=== PATIENT | male | born 1975 ===

== ENCOUNTER 2018-09-06 08:57 | Emergency (ER) | payer OTHER ==
[2018-09-06 09:25] VITALS: RESP 18
[2018-09-06 09:39] LABS: BASO % 0.5 % (0.0-2.0); EOS # 0.1 K/uL (0.0-0.7); EOS % 1.8 % (0.0-4.0); HEMOGLOBIN 13.8 g/dL (12.0-18.0); LYMPH # 1.7 K/uL (1.0-4.3); LYMPH % 33.7 % (20.0-40.0); MEAN CELL VOLUME 74.5 fL (80.0-94.0); MEAN CORPUSCULAR HEMOGLOBIN 23.7 pg (27.0-31.0); MEAN CORPUSCULAR HGB CONC 31.8 g/dL (33.0-37.0); MEAN PLATELET VOLUME 9.7 fL (7.2-11.7); MONO # 0.4 K/uL (0.0-0.8); MONO % 8.1 % (0.0-10.0); NEUT # 2.8 K/uL (1.8-7.0); NEUT % 55.9 % (50.0-75.0); NRBC % 0.1 % (0.0-2.0); RBC 5.82 Mil/uL (4.40-5.90); RED CELL DISTRIBUTION WIDTH 14.1 % (11.5-14.5); WHITE BLOOD COUNT 4.9 K/uL (4.8-10.8)
[2018-09-06 09:50] LABS: BLOOD UREA NITROGEN 18 mg/dL (9-20); CALCIUM 9.6 mg/dl (8.6-10.4); GFR NON-AFRICAN AMERICAN > 60
[2018-09-06] MEDS ORDERED: Iodixanol 320 MG/ML 100 ML BOTTLE IV ONE (10:00)
--- NOTE | 2018-09-06 11:09 | C.PDOC ---
History Of Present Illness 43 year old male presents to the ED for evaluation of al ump to his left neck, under the angle of the jaw noted for one month. Patient states the area has been painful over the past 3 days and presents for evaluation. Patient reports pain is 4-5/10 and sharp and stinging in nature. He denies fever, chill, drainage or history of trauma. Time Seen by Provider: 09/06/18 09:13 Chief Complaint (Nursing): ENT Problem History Per: Patient History/Exam Limitations: None Onset/Duration Of Symptoms: Days (3), Other (one month ) Current Symptoms Are (Timing): Still Present Past Medical History Reviewed: Historical Data, Nursing Documentation, Vital Signs Vital Signs: Last Vital Signs Temp 98.5 F 09/06/18 09:11 Pulse 87 09/06/18 09:11 Resp 18 09/06/18 09:11 BP 149/90 09/06/18 09:11 Pulse Ox 100 09/06/18 09:11 - Medical History PMH: No Chronic Diseases Surgical History: No Surg Hx Family History: States: Unknown Family Hx - Social History Hx Alcohol Use: No Hx Substance Use: No - Immunization History Hx Tetanus Toxoid Vaccination: No Hx Influenza Vaccination: No Hx Pneumococcal Vaccination: No Review Of Systems Constitutional: Negative for: Fever, Chills Skin: Positive for: Other (lump to left side of neck, under the angle of the jaw. no drainage ) Physical Exam - Physical Exam Appears: Non-toxic, No Acute Distress Skin: Normal Color, Warm, Dry, Other (circular, ping pong ball sized firm solid mass to left side of neck, under angle of jaw. no tenderness, erythema or induration ) Head: Atraumatic, Normacephalic Eye(s): bilateral: Normal Inspection Ear(s): Bilateral: Normal Nose: Normal, No Discharge Oral Mucosa: Moist Gingiva: Normal Appearing, No Erythema, No Swelling Throat: Normal, No Erythema, No Exudate, No Drooling, No Mass Neck: Normal ROM, Supple Extremity: Normal ROM Neurological/Psych: Oriented x3, Normal Speech, Normal Cognition ED Course And Treatment - Laboratory Results Result Diagrams: 09/06/18 09:34 09/06/18 09:34 O2 Sat by Pulse Oximetry: 100 (on RA ) Pulse Ox Interpretation: Normal Medical Decision Making Medical Decision Making: Impression: 43 year old male with circular lump to left side of neck Plan: * bloodwork * CT Neck Soft Tissue * reassess and disposition Progress: Bloodwork and CT Neck Soft tissue ordered and reviewed. Disposition Counseled Patient/Family Regarding: Studies Performed, Need For Followup - Disposition Referrals: [facility] [Outside] Disposition: HOME/ ROUTINE Disposition Time: 11:38 Condition: STABLE Additional Instructions: Siga en la clinica para determinar lo que es, danica tumor. Nesetiras boris biopsi. Forms: [employer] ([place]) - POA Present On Arrival: None - Clinical Impression Clinical Impression: Neck mass - Scribe Statement The provider has reviewed the documentation as recorded by the Scribe (Sheela Yap) Provider Attestation: All medical record entries made by the Scribe were at my direction and personally dictated by me. I have reviewed the chart and agree that the record accurately reflects my personal performance of the history, physical exam, medical decision making, and the department course for this patient. I have also personally directed, reviewed, and agree with the discharge instructions and disposition.
--- NOTE | 2018-09-06 11:20 | CT ---
Date of service: 09/06/2018 PROCEDURE: CT NECK WITH CONTRAST HISTORY: large mass to left neck at the angle of the jaw COMPARISON: None available. TECHNIQUE: CT of the neck with intravenous contrast. Coronal and sagittal reformats generated. Intravenous contrast dose: Radiation dose: Total exam DLP = 503.65 mGy-cm. This CT exam was performed using one or more of the following dose reduction techniques: Automated exposure control, adjustment of the mA and/or kV according to patient size, and/or use of iterative reconstruction technique. FINDINGS: NASOPHARYNX: Within normal limits. SUPRAHYOID NECK: There is no mass or abnormal enhancement in the oropharynx, oral cavity, parapharyngeal space and retropharyngeal space. INFRAHYOID NECK: There is no mass or abnormal enhancement in the larynx, hypopharynx, and supraglottic space. Vocal cords intact. GLANDS: Parotid and submandibular glands unremarkable. Normal size thyroid gland, without nodule. LYMPH NODES: At the site of clinically palpable lump in the left submandibular region, there is an approximately 2.7 x 2.1 x 3.5 cm multilobular heterogeneously enhancing predominantly hypodense mass inferior to the submandibular gland and anterior to the sternocleidomastoid muscle and carotid vessels. CERVICAL SPINE: No fracture or focal lesion. VASCULAR STRUCTURES: Normal intravascular enhancement. OTHER FINDINGS: None. IMPRESSION: 2.7 x 2.1 x 3.5 cm multilobular heterogeneously enhancing mass in the left submandibular region at the site of clinically palpable lump. The differential considerations include conglomerate lymph node which may be infectious, inflammatory or neoplastic in etiology. Benign and malignant soft tissue tumors cannot be entirely excluded. Clinical follow-up and histopathologic correlation is advised.
[2018-09-06 11:49] VITALS: BP 115/77; PULSE 67; TEMP 98.3; O2SAT 99
== END 2018-09-06 11:50 | disposition home or self-care (01) ==
LOC: C.ER 08:57
DX: R22.1 Localized swelling, mass and lump, neck (principal)
CPT/HCPCS: 70491; 80048; 85025; 99283; Q9967

== ENCOUNTER 2018-10-16 07:49 | Day surgery (SDC) | payer SELFPAY ==
--- NOTE | 2018-10-16 09:48 | CP.SDSHP ---
Same Day Surgery H & P - History Proposed Procedure: US guided FNA of left neck mass Pre-Op Diagnosis: neck mass - Allergies Allergies: Allergies No Known Allergies Allergy (Unverified 09/06/18 09:13) - Physical Exam Mental Status: Alert & Oriented x3 - Impression Impression: US showed complex solid left neck mass. PLan US guided FNA of left neck mass Pt. Evaluated Today:Candidate for Anesthesia & Procedure: No - Date & Time Date: 10/16/18 Time: 09:25 Short Stay Discharge - Short Stay Discharge Admitting Diagnosis/Reason for Visit: LOCALIZED SWELLING, MASS AND LUMP, HEAD Disposition: HOME/ ROUTINE
--- NOTE | 2018-10-16 09:51 | PCM.SURG1 ---
Surgeon's Initial Post Op Note - Surgeon's Notes Surgeon: Prasad Rayo MD Economic History Teacher: NONE Type of Anesthesia: Local Pre-Operative Diagnosis: neck mass Operative Findings: US showed a complex 2.5 cm left submandibular mass Post-Operative Diagnosis: neck mass Operation Performed: US guided FNA of left neck mass Specimen/Specimens Removed: 25 g FNA x 4 Estimated Blood Loss: EBL {In ML}: 1 Blood Products Given: N/A Drains Used: No Drains Post-Op Condition: Good Date of Surgery/Procedure: 10/16/18 Time of Surgery/Procedure: 09:50
--- NOTE | 2018-10-18 11:36 | US ---
PROCEDURE: Date of procedure: 10/16/2018 Procedure: Ultrasound-guided FNA of left submandibular mass Ultrasound guidance for biopsy, [id number] Medications: 3 cc 1% Lidocaine HISTORY: Complex left submandibular mass TECHNIQUE: Following informed consent and procedure time-out, limited ultrasound patient's left neck showed a large complex cyst submandibular mass measuring 3.8 centimeters. The patient's neck was prepped and draped in the usual sterile fashion. The skin was anesthetized with 1 percent lidocaine. Ultrasound-guided fine needle aspiration was then performed using a 25 gauge needle. A total of 4 passes were made into the mass under direct ultrasound guidance. FNA specimens were obtained and sent for routine pathology . A post biopsy ultrasound showed no hematoma IMPRESSION: Ultrasound-guided FNA of enlarged left submandibular mass.
== END 2018-10-16 09:45 | disposition home or self-care (01) ==
LOC: C.SPRAD 07:49
PROVIDERS: ATTEND Radiology Vascular & Interventional Radiology
DX: D11.7 Benign neoplasm of other major salivary glands (principal)